=== PATIENT | female | born 1945 | race Caucasian/White ===

== ENCOUNTER 2017-03-28 09:48 | Emergency (ER) | payer OTHER ==
[~2017-03-28] VITALS: Ht 162.6 cm; Wt 73.3 kg
[~2017-03-28 09:48] MED LIST: ASPI81TA28 PO; ATOR-14 PO; CHOL1CAP51 PO; COEN100C2 PO; GLUCTAB7 PO; IBUP-103 PO; LEVO100T7 PO; MELO15TA4 PO; OMEG10007 PO; RESV1CAP3 PO; TAMO20TA5 PO
[2017-03-28 09:54] VITALS: TEMP 36.6; Ht 162.6 cm; Wt 73.3 kg
[2017-03-28] MEDS ORDERED: ATOR10TA82 PO (10:25)
[2017-03-28] MEDS ORDERED: MoRPHine SULFATE 10 MG/ML CARP/VIAL IV STA (10:36)
[2017-03-28] MEDS ORDERED: KETOROLAC TROMETHAMINE 60 MG/2 ML VIAL IM STA (10:36)
--- NOTE | 2017-03-28 11:38 | DIAGNOSTIC IMAGING REPORT ---
LUMBAR SPINE 3 VIEWS CLINICAL HISTORY: Low back pain. FINDINGS: AP, lateral, and coned-down views of the lumbar spine are obtained. No prior studies are available for comparison at the time of dictation. The skeletal structures are osteopenic. There is mild lumbar dextrocurvature centered at L2. Vertebral body height and alignment are maintained throughout the lumbar spine. There is straightening of the lumbar lordosis. Small anterior osteophytes are seen throughout. The transverse and spinous processes appear intact. There is facet arthropathy in the mid to lower lumbar region. There is advanced degenerative disc space narrowing with endplate sclerosis seen at L1-L2. Only mild disc space narrowing is seen at the remaining lumbar levels. The bony pelvis is intact as imaged. There is a nonobstructed abdominal bowel gas pattern noting moderate colonic fecal retention. IMPRESSION: 1. No acute bony abnormality is identified in the lumbosacral spine. 2. Osteopenia, spondylotic change, and scoliosis as above. Dictated: 03/28/2017 11:30 AM Transcribed: 03/28/2017 11:37 AM [facility] Electronically signed by: Eliu Parry M.D. 03/28/2017 11:40 AM Dictated Date/Time: 03/28/2017 11:30 AM
--- NOTE | 2017-03-28 11:41 | DIAGNOSTIC IMAGING REPORT ---
PELVIS 1 OR 2 VIEW ROUTINE CLINICAL HISTORY: Lower back pain. COMPARISON STUDY: No previous studies for comparison. FINDINGS: The sacroiliac joints and symphysis pubis are intact. There is no acute fracture within the pelvis or the hips. There is minimal arthritis of both hips. IMPRESSION: No acute fracture within the pelvis or hips. Electronically signed by: Star Tanner M.D. 03/28/2017 11:39 AM Dictated Date/Time: 03/28/2017 11:16 AM
[2017-03-28 12:01] VITALS: BP 101/64; PULSE 55; O2SAT 99
[2017-03-28] MEDS ORDERED: PRED50TA PO (12:01)
[2017-03-28] MEDS ORDERED: OXYC1TAB3 PO (12:01)
--- NOTE | 2017-03-28 16:49 | EMERGENCY ROOM VISIT NOTE ---
History Report prepared by Robbin: Mireya Watkins Under the Supervision of: Dr. Zelalem Boyd D.O. First contact with patient: 10:18 Chief Complaint: BACK PAIN Stated Complaint: BACK PAIN History of Present Illness The patient is a 71 year old female who presents to the Emergency Room with complaints of constant left-sided lower back pain for the past week and a half. She denies doing anything to injure her back. She denies any lifting, twisting, turning, or bending when her pain started. She had gone to dinner with her family and was changing her clothes when she noticed a "pulling" sensation in her lower back. Her pain has worsened since then. The patient reports numbness down the front of her left thigh. She describes her pain as achy and rates it as a 10/10 in severity. She has been taking Tylenol and ibuprofen for pain. She is able to walk, but states that her pain worsens after sitting for long periods of time. The patient saw her PCP for these symptoms and has not had any imaging, but is scheduled to have an MRI in 5 days. She was on steroids, but states that did not help. She denies any weakness in her legs or fevers. Source of History: patient Onset: 1.5 weeks ago Position: back (lower) Symptom Intensity: 10/10 Quality: ache Timing: constant Modifying Factors (Worsening): other (sitting from prolonged periods) Modifying Factors (Relieving): tylenol, ibuprofen Associated Symptoms: + numbness (front left thigh), No fevers, No weakness Review of Systems See HPI for pertinent positives & negatives. A total of 10 systems reviewed and were otherwise negative. Past Medical & Surgical Medical Problems: (1) Cellulitis Of Leg (2) Dyslipidemia (3) Hx Of Breast Malignancy (4) Hypothyroidism Nos (5) Right leg swelling (6) Right leg swelling Surgical Problems: (1) History of hysterectomy (2) Status post breast lumpectomy Family History Cancer Social History Smoking Status: Never Smoker Marital Status: Housing Status: lives with family Occupation Status: employed Current/Historical Medications Scheduled Aspirin (Aspirin Ec), 81 MG PO DAILY Atorvastatin (Lipitor), 10 MG PO DAILY Cholecalciferol (Vitamin D3 High Potency), 1,000 INTER.UNIT PO DAILY Coenzyme Q10 (Ubidecarenone) (Coenzyme Q-10), 100 MG PO DAILY Fish Oil ([place]-3), 1 CAP PO DAILY Raidtiwzkvl-Kpvirzxemgf-Fds C- (Glucosamine Chondroitin), 1 TAB PO DAILY Levothyroxine Sodium (Levothyroxine Sodium), 1 TAB PO DAILY Prednisone (Prednisone), 50 MG PO DAILY Resveratrol (Resveratrol), 250 MG PO DAILY Tamoxifen Citrate (Nolvadex), 20 MG PO DAILY Scheduled PRN Ibuprofen Tab (Advil), 200-400 MG PO TID PRN for Pain Meloxicam (Mobic), 15 MG PO DAILY PRN for Pain Oxycodone Immediate Rel Tab (Roxicodone Ir), 1-2 TAB PO Q4H PRN for Severe Pain Allergies Coded Allergies: No Known Allergies (Unverified , 10/16/12) Physical Exam Vital Signs Date Time Temp Pulse Resp B/P Pulse Ox O2 Delivery O2 Flow Rate FiO2 03/28/17 12:01 55 16 101/64 99 Room Air 03/28/17 09:54 36.6 91 18 161/97 100 Physical Exam GENERAL: alert, sitting up in bed, well appearing, well nourished, no distress, non-toxic. EYE EXAM: normal conjunctiva OROPHARYNX: no exudate, no erythema, lips, buccal mucosa, and tongue normal and mucous membranes are moist NECK: supple, no nuchal rigidity, no adenopathy, non-tender LUNGS: Clear to auscultation. Normal chest wall mechanics HEART: no murmurs, S1 normal and S2 normal ABDOMEN: abdomen soft, non-tender, normo-active bowel sounds, no masses, no rebound or guarding. BACK: Back is symmetrical on inspection and there is no deformity, acute reproducible tenderness through the left SI joint tracking through the left gluteus into the left hip. SKIN: no rashes and no bruising UPPER EXTREMITIES: upper extremities are grossly normal. LOWER EXTREMITIES: No pitting edema. Flexion/extension of hip, knee, ankle, and EHL 5/5 bilaterally. Patellar and Achilles are 2/4 bilaterally. Able to walk on heels and toes. NEURO EXAM: Normal sensorium, cranial nerves II-XII grossly intact, normal speech, no gross weakness of arms, no gross weakness of legs. Medical Decision & Procedures ER Provider Diagnostic Interpretation: Radiology results as stated below per my review and the radiologist's interpretation: PELVIS 1 OR 2 VIEW ROUTINE CLINICAL HISTORY: Lower back pain. COMPARISON STUDY: No previous studies for comparison. FINDINGS: The sacroiliac joints and symphysis pubis are intact. There is no acute fracture within the pelvis or the hips. There is minimal arthritis of both hips. IMPRESSION: No acute fracture within the pelvis or hips. Electronically signed by: Star Tanner M.D. 03/28/2017 11:39 AM Dictated Date/Time: 03/28/2017 11:16 AM LUMBAR SPINE 3 VIEWS CLINICAL HISTORY: Low back pain. FINDINGS: AP, lateral, and coned-down views of the lumbar spine are obtained. No prior studies are available for comparison at the time of dictation. The skeletal structures are osteopenic. There is mild lumbar dextrocurvature centered at L2. Vertebral body height and alignment are maintained throughout the lumbar spine. There is straightening of the lumbar lordosis. Small anterior osteophytes are seen throughout. The transverse and spinous processes appear intact. There is facet arthropathy in the mid to lower lumbar region. There is advanced degenerative disc space narrowing with endplate sclerosis seen at L1-L2. Only mild disc space narrowing is seen at the remaining lumbar levels. The bony pelvis is intact as imaged. There is a nonobstructed abdominal bowel gas pattern noting moderate colonic fecal retention. IMPRESSION: 1. No acute bony abnormality is identified in the lumbosacral spine. 2. Osteopenia, spondylotic change, and scoliosis as above. Dictated: 03/28/2017 11:30 AM Transcribed: 03/28/2017 11:37 AM [facility] Electronically signed by: Eliu Parry M.D. 03/28/2017 11:40 AM Dictated Date/Time: 03/28/2017 11:30 AM Medications Administered Medications (Trade) Dose Ordered Sig/Leonel Route Start Time Stop Time Status Last Admin Dose Admin Morphine Sulfate (MoRPHine SULFATE INJ) 6 mg NOW STAT IV 03/28/17 10:36 03/28/17 10:38 DC 03/28/17 10:46 6 MG Ketorolac Tromethamine (Toradol Inj) 30 mg NOW STAT IM 03/28/17 10:36 03/28/17 10:38 DC 03/28/17 10:45 30 MG ED Course ED COURSE: Vital signs were reviewed and showed hypertensive. The patients medical record was reviewed The above diagnostic studies were performed and reviewed. ED treatments and interventions as stated above. 1018: The patient was evaluated in room B8. A complete history and physical examination was performed. 1036: Toradol 30 mg IM, Morphine sulfate 6 mg IV 1155: Upon reevaluation, the patient is feeling better and resting comfortably. I discussed my findings with the patient and she understands and agrees with the treatment plan. Based on the patients age, coexisting illnesses, exam and lab findings the decision to treat as an outpatient was made. The patient remained stable while under my care. The patient appeared well at the time of discharge. Medical Decision Differential diagnoses includes but is not limited to lumbar radiculopathy, muscle strain, facture, cauda equina, mass, and disc herniation. Patient is a 71-year-old female who presents the ER for severe lower back pain radiating into her left anterior thigh. She denies any weakness. She was able to ambulate on her heels and toes. She was completely neurologically intact. No signs of cauda equina. No fevers. She is scheduled for an MRI on Saturday. She has follow-up with her primary care doctor. X-rays of her lumbar spine and pelvis were unremarkable. She was given IM Toradol and morphine with improvement of her pain. Patient and were updated in regards to findings were discharged follow-up with her primary care doctor with her pain likely secondary to sciatica. Discussed with Pt concerning signs and symptoms to watch out for. Pt was instructed to follow up with their PCP and discussed with the patient their option to return to the ED at anytime for persistent or worsening symptoms. The appropriate anticipatory guidance and out-patient management, including indications for return to the emergency department, were explained at length to the patient and understood. [place] Drug Monitoring Program Search Results: patient reviewed within database, no issues identified Impression Primary Impression: Sciatica Additional Impression: Lower back pain Scribe Attestation The scribe's documentation has been prepared under my direction and personally reviewed by me in its entirety. I confirm that the note above accurately reflects all work, treatment, procedures, and medical decision making performed by me. Departure Information Dispostion Home / Self-Care Prescriptions Prednisone (PREDNISONE) 50 Mg Tab 50 MG PO DAILY for 5 Days, #5 TAB Prov: Zelalem Boyd, DO 03/28/17 Oxycodone Immediate Rel Tab (ROXICODONE IR) 5 Mg Tab 1-2 TAB PO Q4H Y for Severe Pain, #24 TAB Prov: BoydZelalem, DO 03/28/17 Referrals Alex Easley III, M.D. (PCP) Forms HOME CARE DOCUMENTATION FORM, IMPORTANT VISIT INFORMATION Patient Instructions ED Sciatica, My [facility] Additional Instructions Please follow up with your primary care doctor with in the next 24 hours. Any worsening of your symptoms, please return to the ED immediately. This includes weakness in her legs, inability to urinate or move her bowels, inability to walk , fevers greater than 100.4, worsening pain, or any other concerning signs or symptoms from your standpoint. You were given medications during this visit that will inhibit your ability to drive, operate machinery and work. Please do NOT drive, operate machinery or work for the next 12hrs. You were also given a prescription for a narcotic/oxy IR. While taking this medication you should also not drive, operate machinery and or work. Problem Qualifiers Primary Impression: Sciatica Laterality: left Qualified Codes: M54.32 - Sciatica, left side Additional Impression: Lower back pain Chronicity: unspecified Back pain laterality: unspecified Sciatica presence : with sciatica Sciatica laterality: sciatica of left side Qualified Codes: M54.42 - Lumbago with sciatica, left side
== END 2017-03-28 12:13 | disposition home or self-care (01) ==
LOC: C.EDB 09:50
DX: M54.42 Lumbago with sciatica, left side (principal); E78.5 Hyperlipidemia, unspecified; Z85.3 Personal history of malignant neoplasm of breast; E03.9 Hypothyroidism, unspecified; Z90.710 Acquired absence of both cervix and uterus; Z80.9 Family history of malignant neoplasm, unspecified; Z79.82 Long term (current) use of aspirin; Z79.899 Other long term (current) drug therapy

== ENCOUNTER 2018-06-17 10:20 | Emergency (ER) | payer OTHER ==
[~2018-06-17] VITALS: Ht 162.6 cm; Wt 75.7 kg
[~2018-06-17 10:20] MED LIST changes: -ATOR-14 PO; +ATOR10TA82 PO; +MELO-84 PO; -MELO15TA4 PO
[2018-06-17 10:23] VITALS: TEMP 36.8; Ht 162.6 cm; Wt 75.7 kg
[2018-06-17] MEDS ORDERED: ONDANSETRON INJ 2 MG/ML 2 ML VIAL IV STA (10:40)
[2018-06-17] MEDS ORDERED: SODIUM CHLORIDE 0.9% 1000ML 1,000 ML IV STA (10:40)
[2018-06-17] MEDS ORDERED: CHOL1CAP27 PO (10:51)
[2018-06-17 10:52] VITALS: O2SAT 95
--- NOTE | 2018-06-17 10:53 | DIAGNOSTIC IMAGING REPORT ---
SINGLE VIEW CHEST CLINICAL HISTORY: Weakness. Change in mental status. FINDINGS: An AP, portable, upright chest radiograph is obtained. No prior studies are available for comparison at the time of dictation. The examination is degraded by portable technique and patient rotation. The cardiomediastinal silhouette is unremarkable. Nonspecific interstitial thickening is likely chronic. There is mild left basilar atelectasis. No airspace consolidation or large pleural effusion is seen. No pneumothorax is seen. The skeletal structures are osteopenic. The bony thorax is grossly intact. IMPRESSION: No acute cardiopulmonary abnormality. Electronically signed by: Eliu Parry M.D. 06/17/2018 10:52 AM Dictated Date/Time: 06/17/2018 10:51 AM
[2018-06-17 11:34] LABS: BASO % 0.2 %; BASO ABS # 0.01 K/uL (0-0.2); HEMATOCRIT 42.4 % (37-47); IG# 0.01 K/uL (0.00-0.02); LYMPH % 20.2 %; LYMPH ABS # 0.97 K/uL (1.2-3.4); MEAN CELL VOLUME 97.9 fL (80-100); MEAN CORPUSCULAR HEMOGLOBIN 32.3 pg (25-34); MEAN PLATELET VOLUME 9.6 fL (7.4-10.4); MONO ABS # 0.24 K/uL (0.11-0.59); NEUT % 74.4 %; NEUT ABS # 3.58 K/uL (1.4-6.5); PLATELET COUNT 212 K/uL (130-400); RED CELL DISTRIBUTION WIDTH CV 12.7 % (11.5-14.5); RED CELL DISTRIBUTION WIDTH SD 45.5 fL (36.4-46.3); WHITE BLOOD COUNT 4.81 K/uL (4.8-10.8)
[2018-06-17 11:51] LABS: PTT PATIENT 26.1 SECONDS (21.0-31.0)
[2018-06-17 12:01] LABS: ALBUMIN 3.5 gm/dl (3.4-5.0); ALKALINE PHOSPHATASE 80 U/L (45-117); ALT/SGPT 26 U/L (12-78); AST/SGOT 20 U/L (15-37); BLOOD UREA NITROGEN 13 mg/dl (7-18); CALCIUM 8.5 mg/dl (8.5-10.1); CARBON DIOXIDE 28 mmol/L (21-32); CREATININE 0.77 mg/dl (0.60-1.20); GLUCOSE 137 mg/dl (70-99); SODIUM 140 mmol/L (136-145); TOTAL PROTEIN 7.5 gm/dl (6.4-8.2)
--- NOTE | 2018-06-17 12:11 | DIAGNOSTIC IMAGING REPORT ---
CT SCAN OF THE BRAIN WITHOUT IV CONTRAST CLINICAL HISTORY: Weakness. Change in mental status. COMPARISON STUDY: No priors. TECHNIQUE: Unenhanced axial CT scan of the brain is performed from the vertex to the skull base. A dose lowering technique was utilized adhering to the principles of ALARA. CT DOSE: 537.48 mGy.cm FINDINGS: Brain parenchyma: There are age-related involutional changes noting minimal subcortical and periventricular microangiopathic change. There is no hemorrhage, mass effect, or evidence of acute territorial ischemia by CT criteria. [place]-white matter is preserved. No extra-axial fluid collection is seen. Ventricles, sulci, cisterns: Prominent secondary to involutional change. Intracranial vasculature: There is minimal atherosclerotic calcification of the cavernous carotid arteries. Calvarium: Unremarkable. Sinuses and mastoids: The visualized paranasal sinuses are clear. The mastoid air cells are well pneumatized. Orbits: The bony orbits are grossly intact. IMPRESSION: There is no hemorrhage, mass effect, or evidence of acute territorial ischemia by CT criteria. Electronically signed by: Eliu Parry M.D. 06/17/2018 12:10 PM Dictated Date/Time: 06/17/2018 12:08 PM
[2018-06-17] MEDS ORDERED: MECL1TAB42 PO (16:20)
[2018-06-17 16:29] VITALS: BP 115/72; PULSE 65; O2SAT 99
--- NOTE | 2018-06-17 16:45 | EMERGENCY ROOM VISIT NOTE ---
History Report prepared by Robbin: Tavon Sanabria Under the Supervision of: Dr. Zelalem Boyd D.O. First contact with patient: 10:27 Chief Complaint: SYNCOPE (NEAR SYNCOPE) Stated Complaint: DIZZY SPELLS, DRY MOUTH, SYNCOPE THIS AM History of Present Illness The patient is a 73 year old female who presents to the Emergency Room with complaints of 2 separate episodes of dizziness that first onset this morning at 0530, 5 hours ago. The patient states that she got out of bed to use the restroom this morning at 0530 and felt "dizzy." She went back to bed and felt fine when she woke up. She was preparing breakfast and felt the dizziness onset again. She describes the dizziness as the room "spinning." The patient's family members at bedside note that she sat down on the cough and "passed out." She does note a headache now in the back of her head, but she notes that this is not unusual for her. She denies any weakness, chest pain, shortness of breath, or numbness. She does have a history of hyperlipidemia, no history of [place]. Source of History: patient Onset: 5 hours ago Position: head Quality: other ("Dizzy" "spinning" ) Timing: other (2 episodes) Associated Symptoms: + headache, No chest pain, No SOB Review of Systems See HPI for pertinent positives & negatives. A total of 10 systems reviewed and were otherwise negative. Past Medical & Surgical Medical Problems: (1) Cellulitis Of Leg (2) Dyslipidemia (3) Hx Of Breast Malignancy (4) Hypothyroidism Nos (5) Right leg swelling (6) Right leg swelling Surgical Problems: (1) History of hysterectomy (2) Status post breast lumpectomy Family History Cancer Social History Smoking Status: Never Smoker Marital Status: Housing Status: lives with family Occupation Status: employed Current/Historical Medications Scheduled Aspirin (Aspirin Ec), 81 MG PO DAILY Atorvastatin (Lipitor), 10 MG PO DAILY Cholecalciferol (D3), 1,000 UNIT PO DAILY Coenzyme Q10 (Ubidecarenone) (Coenzyme Q-10), 100 MG PO DAILY Fish Oil ([place]-3), 1 CAP PO DAILY Xsherdkjion-Numcdlkqwnq-Omv C- (Glucosamine Chondroitin), 1 TAB PO DAILY Levothyroxine Sodium (Levothyroxine Sodium), 100 MCG PO DAILY Resveratrol (Resveratrol), 250 MG PO DAILY Tamoxifen Citrate (Nolvadex), 20 MG PO DAILY Scheduled PRN Ibuprofen Tab (Advil), 200-400 MG PO TID PRN for Pain Meclizine Hcl (Meclizine Hcl), 1 TAB PO TID PRN for dizzy Meloxicam (Mobic), 15 MG PO DAILY PRN for Pain Allergies Coded Allergies: No Known Allergies (Unverified , 06/17/18) Physical Exam Vital Signs Date Time Temp Pulse Resp B/P (MAP) Pulse Ox O2 Delivery O2 Flow Rate FiO2 06/17/18 16:29 65 16 115/72 99 06/17/18 15:33 73 06/17/18 15:30 88 16 129/80 99 Room Air 06/17/18 15:00 74 18 141/91 99 Room Air 06/17/18 14:27 74 18 133/87 98 Room Air 06/17/18 12:50 85 20 156/88 98 Room Air 06/17/18 11:15 75 17 139/91 97 Room Air 06/17/18 11:14 76 163/93 84 139/91 82 166/98 06/17/18 10:57 78 06/17/18 10:52 95 Room Air 06/17/18 10:23 36.8 85 20 165/96 100 Room Air Physical Exam GENERAL: Sitting up in bed, alert, well appearing, well nourished, no distress, non-toxic EYE EXAM: normal conjunctiva. PERRL and EOM's intact. OROPHARYNX: no exudate, no erythema, lips, buccal mucosa, and tongue normal and mucous membranes are moist NECK: supple, no nuchal rigidity, no adenopathy, non-tender LUNGS: Clear to auscultation. Normal chest wall mechanics HEART: no murmurs, S1 normal and S2 normal ABDOMEN: abdomen soft, non-tender, normo-active bowel sounds, no masses, no rebound or guarding. BACK: Back is symmetrical on inspection and there is no deformity, no midline tenderness, no CVA tenderness. SKIN: no rashes and no bruising UPPER EXTREMITIES: upper extremities are grossly normal. LOWER EXTREMITIES: No pitting edema. NEURO EXAM: Normal sensorium, cranial nerves II-XII intact, normal speech, no weakness of arms, no weakness of legs. No drift. Finger to nose intact. Gross sensation intact. Medical Decision & Procedures ER Provider Diagnostic Interpretation: Radiology results as stated below per my review and the radiologist's interpretation: SINGLE VIEW CHEST CLINICAL HISTORY: Weakness. Change in mental status. FINDINGS: An AP, portable, upright chest radiograph is obtained. No prior studies are available for comparison at the time of dictation. The examination is degraded by portable technique and patient rotation. The cardiomediastinal silhouette is unremarkable. Nonspecific interstitial thickening is likely chronic. There is mild left basilar atelectasis. No airspace consolidation or large pleural effusion is seen. No pneumothorax is seen. The skeletal structures are osteopenic. The bony thorax is grossly intact. IMPRESSION: No acute cardiopulmonary abnormality. Electronically signed by: Eliu Parry M.D. 06/17/2018 10:52 AM Dictated Date/Time: 06/17/2018 10:[address] SCAN OF THE BRAIN WITHOUT IV CONTRAST CLINICAL HISTORY: Weakness. Change in mental status. COMPARISON STUDY: No priors. TECHNIQUE: Unenhanced axial CT scan of the brain is performed from the vertex to the skull base. A dose lowering technique was utilized adhering to the principles of ALARA. CT DOSE: 537.48 mGy.cm FINDINGS: Brain parenchyma: There are age-related involutional changes noting minimal subcortical and periventricular microangiopathic change. There is no hemorrhage, mass effect, or evidence of acute territorial ischemia by CT criteria. [place]-white matter is preserved. No extra-axial fluid collection is seen. Ventricles, sulci, cisterns: Prominent secondary to involutional change. Intracranial vasculature: There is minimal atherosclerotic calcification of the cavernous carotid arteries. Calvarium: Unremarkable. Sinuses and mastoids: The visualized paranasal sinuses are clear. The mastoid air cells are well pneumatized. Orbits: The bony orbits are grossly intact. IMPRESSION: There is no hemorrhage, mass effect, or evidence of acute territorial ischemia by CT criteria. Electronically signed by: Eliu Parry M.D. 06/17/2018 12:10 PM Dictated Date/Time: 06/17/2018 12:08 PM Laboratory Results 06/17/18 11:22 Red Blood Count 4.33, Mean Corpuscular Volume 97.9, Mean Corpuscular Hemoglobin 32.3, Mean Corpuscular Hemoglobin Concent 33.0, Mean Platelet Volume 9.6, Neutrophils (%) (Auto) 74.4, Lymphocytes (%) (Auto) 20.2, Monocytes (%) (Auto) 5.0, Eosinophils (%) (Auto) 0.0, Basophils (%) (Auto) 0.2, Neutrophils # (Auto) 3.58, Lymphocytes # (Auto) 0.97, Monocytes # (Auto) 0.24, Eosinophils # (Auto) 0.00, Basophils # (Auto) 0.01 06/17/18 11:22 Test 06/17/18 10:46 06/17/18 11:22 06/17/18 11:35 06/17/18 15:00 Bedside Glucose 144 mg/dl (70-90) White Blood Count 4.81 K/uL (4.8-10.8) Red Blood Count 4.33 M/uL (4.2-5.4) Hemoglobin 14.0 g/dL (12.0-16.0) Hematocrit 42.4 % (37-47) Mean Corpuscular Volume 97.9 fL (80-100) Mean Corpuscular Hemoglobin 32.3 pg (25-34) Mean Corpuscular Hemoglobin Concent 33.0 g/dl (32-36) Platelet Count 212 K/uL (130-400) Mean Platelet Volume 9.6 fL (7.4-10.4) Neutrophils (%) (Auto) 74.4 % Lymphocytes (%) (Auto) 20.2 % Monocytes (%) (Auto) 5.0 % Eosinophils (%) (Auto) 0.0 % Basophils (%) (Auto) 0.2 % Neutrophils # (Auto) 3.58 K/uL (1.4-6.5) Lymphocytes # (Auto) 0.97 K/uL (1.2-3.4) Monocytes # (Auto) 0.24 K/uL (0.11-0.59) Eosinophils # (Auto) 0.00 K/uL (0-0.5) Basophils # (Auto) 0.01 K/uL (0-0.2) RDW Standard Deviation 45.5 fL (36.4-46.3) RDW Coefficient of Variation 12.7 % (11.5-14.5) Immature Granulocyte % (Auto) 0.2 % Immature Granulocyte # (Auto) 0.01 K/uL (0.00-0.02) Prothrombin Time 10.2 SECONDS (9.0-12.0) Prothromb Time International Ratio 1.0 (0.9-1.1) Activated Partial Thromboplast Time 26.1 SECONDS (21.0-31.0) Partial Thromboplastin Ratio 1.0 Anion Gap 7.0 mmol/L (3-11) Est Creatinine Clear Calc Drug Dose 63.9 ml/min Estimated GFR () 88.2 Estimated GFR (Non- 76.1 BUN/Creatinine Ratio 16.5 (10-20) Calcium Level 8.5 mg/dl (8.5-10.1) Magnesium Level 2.0 mg/dl (1.8-2.4) Total Bilirubin 0.4 mg/dl (0.2-1) Direct Bilirubin 0.1 mg/dl (0-0.2) Aspartate Amino Transf (AST/SGOT) 20 U/L (15-37) Alanine Aminotransferase (ALT/SGPT) 26 U/L (12-78) Alkaline Phosphatase 80 U/L (45-117) Total Protein 7.5 gm/dl (6.4-8.2) Albumin 3.5 gm/dl (3.4-5.0) Thyroid Stimulating Hormone (TSH) 2.090 uIu/ml (0.300-4.500) Urine Color YELLOW Urine Appearance CLOUDY (CLEAR) Urine pH 8.0 (4.5-7.5) Urine Specific Ucon 1.009 (1.000-1.030) Urine Protein NEG (NEG) Urine Glucose (UA) NEG (NEG) Urine Ketones NEG (NEG) Urine Occult Blood NEG (NEG) Urine Nitrite NEG (NEG) Urine Bilirubin NEG (NEG) Urine Urobilinogen NEG (NEG) Urine Leukocyte Esterase NEG (NEG) Urine WBC (Auto) 0 /hpf (0-5) Urine RBC (Auto) 0-4 /hpf (0-4) Urine Hyaline Casts (Auto) 0 /lpf (0-5) Urine Epithelial Cells (Auto) >30 /lpf (0-5) Urine Bacteria (Auto) NEG (NEG) Troponin I < 0.015 ng/ml (0-0.045) Laboratory results per my review. Medications Administered Medications (Trade) Dose Ordered Sig/Leonel Route Start Time Stop Time Status Last Admin Dose Admin Sodium Chloride 1,000 ml @ 999 mls/hr Q1H1M STAT IV 06/17/18 10:40 06/17/18 11:40 DC 06/17/18 10:40 999 MLS/HR Ondansetron HCl (Zofran Inj) 4 mg NOW STAT IV 06/17/18 10:40 06/17/18 10:41 DC 06/17/18 10:40 4 MG ECG Per My Interpretation Indication: syncope Rate (beats per minute): 74 Rhythm: sinus rhythm Findings: other (Normal [place], No PVCs) ED Course ED COURSE: Vital signs were reviewed and showed situationally hypertensive. The patients medical record was reviewed The above diagnostic studies were performed and reviewed. ED treatments and interventions as stated above. 1027: The patient was evaluated in room A4. A complete history and physical examination was performed. 1040: Ordered Zofran 4 mg IV, Sodium Chloride 1000 mL @ 999 mL/hr IV. 1336: I discussed the case with Latisha Cason - [facility] Hospitalist BARBARA. She will evaluate the patient for further treatment. 1614: I discussed with Latisha Cason, she states that the patient may be discharged home. 1616: Upon reevaluation, the patient is resting in bed. I discussed my findings with the patient and she understands and agrees with the treatment plan. Based on the patients age, coexisting illnesses, exam and lab findings the decision to treat as an inpatient was made. The patient remained stable while under my care. The patient will be discharged home. Medical Decision Differential diagnosis includes etiologies such as vasovagal event, infection, hypoglycemia, electrolyte abnormalities, cardiac sources, intracerebral event, toxicologic, neurologic, as well as others were entertained. Patient is a 73-year-old female who presents the ER for an episode of syncope. She notes that she was intermittently dizzy 3 times at home today and during when she sat on the couch and passed out per family. Patient is completely neurologically intact currently. CBC along with BMP, LFTs, bilirubin and troponin was abnormal. TSH was normal. Repeat troponin was completely negative. UA was negative. CT head was negative. EKG was unremarkable. Patient had one episode in the ER without any arrhythmias on monitor. I did discuss with the hospitalist initially due to her age and the syncopal episode concern for arrhythmia. Latisha cason evaluated the patient's current workup and noted that a troponin should be repeated and if negative can go home. Repeat troponin was negative. She set up an appointment as an outpatient with patient to follow-up with PCP. Uncertain of the true cause of the vertiginous symptoms however I do not feel this is consistent with central. Patient family were updated bedside discharge follow-up PCP as an outpatient. Discussed with Pt concerning signs and symptoms to watch out for. Pt was instructed to follow up with their PCP and discussed with the patient their option to return to the ED at anytime for persistent or worsening symptoms. The appropriate anticipatory guidance and out-patient management, including indications for return to the emergency department, were explained at length to the patient and understood. Medication Reconcilliation Current Medication List: was personally reviewed by me Blood Pressure Screening Patient's blood pressure: Elevated blood pressure Blood pressure disposition: Elevated BP felt to be situational Consults Time Called: [phone] Consulting Physician: Latisha JIMENEZ Returned Call: [phone] I discussed the case with Latisha JIMENEZ. She will evaluate the patient for further treatment. Impression Primary Impression: Syncope Additional Impression: Vertigo Scribe Attestation The scribe's documentation has been prepared under my direction and personally reviewed by me in its entirety. I confirm that the note above accurately reflects all work, treatment, procedures, and medical decision making performed by me. Departure Information Dispostion Home / Self-Care Prescriptions Meclizine Hcl (MECLIZINE HCL) 25 Mg Tab 1 TAB PO TID Y for dizzy for 10 Days, #30 TAB Prov: Zelalem Boyd, 06/17/18 Referrals Alex Easley III, M.D. (PCP) Patient Instructions My [facility] Problem Qualifiers Primary Impression: Syncope Syncope type: unspecified Qualified Codes: R55 - Syncope and collapse
== END 2018-06-17 16:29 | disposition home or self-care (01) ==
LOC: C.EDB 10:21 → C.EDA 16:29
DX: R55 Syncope and collapse (principal); E78.5 Hyperlipidemia, unspecified; E03.9 Hypothyroidism, unspecified; Z90.710 Acquired absence of both cervix and uterus; Z85.3 Personal history of malignant neoplasm of breast; Z80.9 Family history of malignant neoplasm, unspecified; Z79.82 Long term (current) use of aspirin; Z79.899 Other long term (current) drug therapy